=== PATIENT | male | born 1975 | race Caucasian/White ===

== ENCOUNTER 2025-05-06 10:19 | Outpatient (AMB) | payer OTHER, SELFPAY ==
--- NOTE | 2025-05-06 10:23 | A.OFFPC_ITS ---
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: No Accompanied by: Self / Same As Patient Allergies Penicillins (PCN) Allergy (Unknown, Verified 05/06/25 10:40) Unknown Medication List - Last Reconciled 05/06/25 by MARY JANE Garrido No Known Home Meds Tobacco use date assessed: 05/06/25 Dental Screening Dental Screen Date: 05/06/25 Did you have a dental visit in the last 12 months?: Yes Did you have a dental problem in the last 6 months where you did not have access to dental care?: No HPI HPI Comments History of Present Illness Details Previous PCP: He cannot remember the name Last visit: Three years ago at least Last PE: Several years ago 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 The patient reports a history of abnormal gait for approximately the last 10 years, which causes difficulty with walking for long durations. The patient experiences pain in both knees and hands, with the left foot reportedly being worse than the right. After walking for a period, the patient notes the onset of hip pain and an audible popping sound. The patient previously underwent physical therapy, which provided some benefit, and had imaging performed about two years ago. The patient reports being overweight and requests assistance with weight loss. Past medical history is notable for GERD and good baseline blood pressure, kidney function, and heart health. The patient denies a history of diabetes. The patient has a significant family history of cancer, noting their father, father's brother, and father's sisters have all had cancer. The patient's father had colon cancer that required chemotherapy. There is concern for a possible environmental link, as the [place] area. Health Maintenance - The patient's last physical exam was a bout 7 years ago. - Significant family history of cancer w as discussed, including colon cancer in the patient's father and other cancers among paternal relatives. - A discussion was held regarding potent ial environmental cancer risk factors related to growing [place] in an industrial town. - Screening labs, including a fasting ch olesterol panel, will be ordered as the patient has not had a physical in a while. 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 - The patient grew up in [place], [place], which was described as an industrial town with a high incidence of cancer. - The patient reports being overweight a nd desires assistance with weight management. - The patient reports an abnormal gait a nd cannot walk for very long, which impacts functional status. Results - Prior Imaging: The patient reports hav ing had imaging of the joints approximately two years ago. [facility] Medical History Knee pain, right Knee pain, left Gout Family History (Updated 05/06/25 @ 12:47 by MARY JANE Garrido) Mother No problems noted. Father No problems noted. Other Cancer of unknown origin Colon cancer Skin cancer Social History Housing: House Patient Tobacco Use Status: Current everyday Tobacco user (smoke cigar) e-Cigarette/Vaping Use: Currently Using (cigar) service: No Current occupational status: employed Cognitive needs: No Hearing needs: No Vision needs: Yes (rx glasses) Questionnaire PHQ-9 Over the last 2 weeks, how often have you been bothered by any of the following problems? 1. Little interest or pleasure in doing things: not at all 2. Feeling down, depressed, or hopeless: not at all 3. Trouble falling or staying asleep, or sleeping too much: more than half the days 4. Feeling tired or having little energy: several days 5. Poor appetite or overeating: more than half the days 6. Feeling bad about yourself - or that you are a failure or have let yourself or your family down: not at all 7. Trouble concentrating on things, such as reading the newspaper or watching television: not at all 8. Moving or speaking so slowly that other people could have noticed. Or the opposite - being so fidgety or restless that you have been moving around a lot more than usual: not at all 9. Thoughts that you would be better off or of hurting yourself in some way: not at all Total score: 5 Source: Developed by Drs. Vladislav Nelson, Carito Hunter, Domo Tobin and colleagues, with an educational daniel from [employer]. Thrive Questionnaire Date Thrive assessed: 05/06/25 I am a: Patient What is your living situation today?: I have a steady place to live Within the past 12 months, did the food you bought not last and you didn't have the money to get more?: Never true Within the past 12 months, did you worry whether your food would run out before you got money to buy more?: Never true Do you have trouble paying for medicines?: No Do you have trouble getting transportation to medical appointments?: No Do you have trouble paying your heating and electricity bill?: No Do you have trouble taking care of your child, family member or friend?: No Do you have trouble with day-to-day activities such as bathing, preparing meals, shopping, managing finances, etc.?: No Are you currently unemployed and looking for a job?: No Are you interested in more education?: No Please select the resources that you would like help with: None Currently or been in a relationship where the following occur: No concerns reported THRIVE Score: 0 AUDIT C Alcohol Use Questionnaire (AUDIT-C) 1. How often do you have a drink containing alcohol?: 2-3 times a week 2. How many drinks containing alcohol do you have on a typical day when you are drinking?: 3 or 4 3. How often do you have six or more drinks on one occasion?: Less than monthly Total Score: 5 MICHA-7 AMB Questionnaire MICHA-7 Date MICHA - 7 assessed: 05/06/25 Feeling nervous, anxious, or on edge: 0 = Not at all Not being able to stop or control worryin = Not at all Worrying too much about different things: 0 = Not at all Trouble relaxin = Not at all Being so restless that it is hard to sit still: 0 = Not at all Becoming easily annoyed or irritable: 0 = Not at all Feeling afraid as if something awful might happen: 0 = Not at all Total MICHA-7 score (0-4 normal; 5-9 mild; 10-14 moderate; 15-21 severe): 0 Source: Developed by Drs. Vladislav Nelson, Carito Hunter, Domo Tobin and colleagues, with an educational daniel from [employer]. Review of Systems Narrative Review of Systems - General: Reports being overweight and experiencing fatigue with exertion. - HEENT: Reports a sensation of blocked ears. - Gastrointestinal: Reports a history of GERD. - Musculoskeletal: Reports pain in both knees and hands. - Reports hip pain and an audible popping sound after walking. - Reports having an abnormal gait. Const Denies headache(s) Eyes Denies loss of vision ENT Denies vertigo, Denies dizziness, Denies headache(s) and Denies sore throat Card Denies chest pain, Denies leg edema and Denies lightheadedness Resp Denies cough, Denies hemoptysis and Denies wheezing GI Denies abdominal pain, Denies melena, Denies constipation, Denies diarrhea and Denies vomiting Denies dysuria, Denies urinary frequency and Denies urinary urgency Musc Reports arthralgias (Bilateral knees), Denies joint swelling, Denies numbness and Denies tingling Neuro Denies Abnormal speech present, Denies behavioral changes, Denies vertigo, Michael es dizziness, Denies headache(s), Denies loss of vision, Denies memory loss, Denies numbness and Denies tingling Psych Denies anxiety, Denies behavioral changes, Denies depression, Denies memory loss and Denies panic attacks Pete/Lymph Denies easy bleeding and Denies easy bruising Aller/Immun Denies wheezing Physical exam (Primary Care) Vital Signs: Last Vital Signs Temp 97.8 F 05/06/25 10:28 Pulse 63 05/06/25 10:28 BP 128/86 05/06/25 10:28 Pulse Ox 96 05/06/25 10:28 Oxygen Delivery Method Room Air 05/06/25 10:28 BMI result Body Mass Index 47.1 Tobacco/Smoking Status: Tobacco use Status Tobacco use date assessed 05/06/25 05/06/25 10:25 Patient Tobacco Use Status Current everyday Tobacco ( 05/06/25 10:35 smoke cigar) e-Cigarette/Vaping Use Currently Using (cigar) 05/06/25 10:35 PHQ-9: PHQ-9 Score PHQ-9: Total score 5 05/06/25 10:25 Thrive Assessment: Date of Thrive Assessment Date Thrive assessed 05/06/25 05/06/25 10:25 Currently or been in a relationship where the following occur: No concerns reported Narrative Physical Exam - HEENT: Otoscopic examination reveals bilateral ear canals are occluded by cerumen, preventing visualization of the tympanic membranes. - Musculoskeletal: General observation of gait performed. - Joint crepitus is present with movement. - Cardiovascular: Dorsalis pedis pulses were assessed. Const General: healthy appearing, no acute distress, alert and awake Nutritional Appearance: well nourished Orientation/consciousness: oriented to person, oriented to place and oriented to time HENMT Ears: TM's normal bilaterally General nose exam: Normal nasal mucous membranes and turbinates present Eyes Conjunctivae: conjunctivae normal Sclerae: sclerae normal Pupils: Equal, round and reactive pupils present Neck Neck: Yes no lymphadenopathy and Yes no JVD Thyroid: Thyroid normal Carotids: no bruits Resp Effort & Inspection: normal respiratory effort and not tachypneic Auscultation: no crackles, no rales, no rhonchi and no wheezes Cardio Rate: regular rate Rhythm: regular rhythm Heart sounds: no murmurs and normal S1 and S2 GI Palpation (GI): Soft to palpation, nontender, no hepatomegaly and no splenomegaly Auscultation: normal bowel sounds Skin General skin exam: no rashes or lesions noted and dry skin Neuro General: oriented to person, oriented to place and oriented to time Cranial nerves: Yes Equal, round and reactive pupils present Speech: No Abnormal speech present Gait exam (Neuro): Normal gait present Motor exam (neuro): no tremor noted Extrem Right upper extremity: full ROM Left upper extremity: full ROM Right lower extremity: full ROM and knee Details: swelling and crepitus Location: at the kneww; no tenderness; no edema Left lower extremity: full ROM and knee Details: swelling; no tenderness and no crepitus; no edema Psych Mental Status: mental status grossly normal Speech and movement: Normal speech and movement present Affect: normal affect Attitude: cooperative Thought process: Normal thought process present Coding Level of Care Code New Pt Level 4 (12455) Diagnoses Chronic gout without tophus, unspecified cause, unspecified site M1A.9XX0 Gout site: unspecified site Gout etiology: unspecified cause Chronicity: chronic Presence of tophus: without tophus Chronic pain of left knee M25.562; G89.29 Chronicity: chronic Chronic pain of right knee M25.561; G89.29 Chronicity: chronic Time Spent (min) 38 Assessment & Plan Assessment & Plan (1) Gout: Code(s): M10.9 - Gout, unspecified Category: Medical Qualifiers: Gout site: unspecified site Gout etiology: unspecified cause Chronicity: chronic Presence of tophus: without tophus Qualified Code(s): M1A.9XX0 - Chronic gout, unspecified, without tophus (tophi) (2) Knee pain, left: Code(s): M25.562 - Pain in left knee Category: Medical Qualifiers: Chronicity: chronic Qualified Code(s): M25.562 - Pain in left knee; G8 9.29 - Other chronic pain (3) Knee pain, right: Code(s): M25.561 - Pain in right knee Category: Medical Qualifiers: Chronicity: chronic Qualified Code(s): M25.561 - Pain in right knee; G89.29 - Other chronic pain Plan Plan Patient was informed and verbally consented to the use of an ambient scribe for clinic note documentation during this visit. 1. Difficulty In Walking, Not Elsewhere Classified The patient presents with a chronic history of abnormal gait and associated pain in the hips and knees, which limits the ability to walk for extended periods. To further evaluate the etiology, new X-rays of the affected joints will be ordered to assess the current condition, as prior imaging is two years old. A follow-up visit is scheduled in seven weeks to review the imaging results and formulate a comprehensive management plan to improve ambulation. 2. Morbid obesity The patient was encouraged to decrease foods that high in cholesterol. Management will include obtaining screening lab work, including a fasting cholesterol panel, to assess for metabolic abnormalities. Addressing the patient's gait and pain issues is a primary step toward enabling increased physical activity for weight management. 3. Encounter For General Adult Medical Examination As the patient has not had a physical examination in several years, comprehensive screening labs will be conducted. This will include a fasting lipid panel to check cholesterol levels. A follow-up visit will occur in seven weeks to review all results and complete the physical. Discussion Notes I discussed with the patient the plan to investigate the chronic difficulty with ambulation and associated pain. I explained that we will begin by obtaining new X-rays of the joints and comprehensive blood work, including a fasting lipid panel, as it has been a significant time since the patient's last physical. I recommended scheduling a follow-up appointment in approximately seven weeks to review all results and then develop a plan to address mobility and weight concerns. The patient was agreeable to this plan. Patient Instructions - Please go to the lab to have your blood drawn. - You must not eat or drink anything (except water) for 8 to 12 hours before the blood test for your cholesterol. - Please get X-rays of your joints as soon as you can. - Please schedule a follow-up appointment to see me in about 7 weeks to review all of your results. - At your next visit, we will create a plan to help you walk better and help with weight management. Orders: Orders Comprehensive [place]. Panel Fast Today Z00.00 - Encounter for general adult medical examination without abnormal findings Lipid Panel Today Z00.00 - Encounter for general adult medical examination without abnormal findings UA CC w/rflx Micro + Cult Today Z00.00 - Encounter for general adult medical examination without abnormal findings Vitamin D 25-OH Total Today Z00.00 - Encounter for general adult medical examination without abnormal findings XR knee LT 3V Today M25.562 - Pain in left knee XR knee RT 3V Today M25.561 - Pain in right knee Complete Blood Count Auto Diff Today Z00.00 - Encounter for general adult medical examination without abnormal findings TSH reflex Free T4 Today Z00.00 - Encounter for general adult medical examination without abnormal findings PSA,Total (Free>4and<10) Today Z00.00 - Encounter for general adult medical examination without abnormal findings Hemoglobin A1c Today Z00.00 - Encounter for general adult medical examination without abnormal findings Uric Acid Today M10.9 - Gout, unspecified
[2025-05-06 10:28] VITALS: BP 128/86; PULSE 63; TEMP 36.6; O2SAT 96; BMI 47.1
== END 2025-05-06 11:09 | disposition home or self-care (01) ==
LOC: HO.HMCH 10:19
DX: M1A.9XX0 Chronic gout, unspecified, without tophus (tophi) (principal); M25.562 Pain in left knee; G89.29 Other chronic pain; M25.561 Pain in right knee

== ENCOUNTER 2025-05-23 07:32 | Outpatient (REF) | payer OTHER, SELFPAY ==
--- NOTE | ~2025-05-23 | XR_ITS ---
EXAMINATION: XR KNEE, RIGHT CLINICAL INFORMATION: M25.561 - Pain in right knee COMPARISON: None available. TECHNIQUE: AP oblique and lateral views of the right knee. FINDINGS: Joint space narrowing involving mostly the lateral compartment. Marginal osteophyte formation femoral condyles and tibial plateau as well as the posterior patella. No acute fracture or dislocation. No soft tissue constipation. Vascular calcifications. No gross suprapatellar bursa joint effusion. XR/XR knee RT 3V IMPRESSION: Tricompartmental osteoarthrosis/osteoarthritis involving mostly the lateral compartment, moderate to severe. EXAMINATION: XR KNEE, LEFT CLINICAL INFORMATION: M25.562 - Pain in left knee COMPARISON: None available. TECHNIQUE: AP oblique and lateral views of the left knee. FINDINGS: Joint space narrowing involving mostly the medial compartment with sclerosis along the articular surface. Marginal osteophyte formation and femoral condyles and tibial plateau pronounced in the medial compartment. Posterior osteophyte formation in the patella. Unable to evaluate the suprapatellar bursa, left knee.. No gross joint effusion. Soft tissue calcifications in the popliteal region. No acute fracture or dislocation. IMPRESSION: Tricompartmental osteoarthrosis/osteoarthritis involving mostly the medial compartment, moderate to severe. Electronically signed by: Manuel Nguyen MD 05/23/2025 02:16 PM [facility]
--- NOTE | ~2025-05-23 | XR_ITS ---
EXAMINATION: XR KNEE, RIGHT CLINICAL INFORMATION: M25.561 - Pain in right knee COMPARISON: None available. TECHNIQUE: AP oblique and lateral views of the right knee. FINDINGS: Joint space narrowing involving mostly the lateral compartment. Marginal osteophyte formation femoral condyles and tibial plateau as well as the posterior patella. No acute fracture or dislocation. No soft tissue constipation. Vascular calcifications. No gross suprapatellar bursa joint effusion. XR/XR knee LT 3V IMPRESSION: Tricompartmental osteoarthrosis/osteoarthritis involving mostly the lateral compartment, moderate to severe. EXAMINATION: XR KNEE, LEFT CLINICAL INFORMATION: M25.562 - Pain in left knee COMPARISON: None available. TECHNIQUE: AP oblique and lateral views of the left knee. FINDINGS: Joint space narrowing involving mostly the medial compartment with sclerosis along the articular surface. Marginal osteophyte formation and femoral condyles and tibial plateau pronounced in the medial compartment. Posterior osteophyte formation in the patella. Unable to evaluate the suprapatellar bursa, left knee.. No gross joint effusion. Soft tissue calcifications in the popliteal region. No acute fracture or dislocation. IMPRESSION: Tricompartmental osteoarthrosis/osteoarthritis involving mostly the medial compartment, moderate to severe. Electronically signed by: Manuel Nguyen MD 05/23/2025 02:16 PM [facility]
[2025-05-23 10:12] LABS: MANUAL DIFF FLAG NO
[2025-05-23 10:22] LABS: Hematocrit 47.7 % (42.0-52.0); Hemoglobin 15.7 g/dl (14.0-18.0); Imm Gran Abs Auto 0.04 X10*3/uL (0.00-0.03); Imm Gran Pct Auto 0.5 % (0.0-0.4); Lymphocytes Absolute Auto 2.1 X10*3/uL (1.2-4.9); Mean Corpuscular HGB Conc 32.9 g/dl (31.0-36.0); Mean Corpuscular Hemoglobin 30.6 pg (27.0-33.0); Mean Corpuscular Volume 93.0 fL (80.0-98.0); NRBC Abs Auto 0.000 X10*3/uL (0.0-0.012); NRBC Pct Auto 0.0 /100WBC (0.0-0.2); Platelet Count 345 X10*3/uL (160-400); Red Blood Count 5.13 X10*6/uL (4.60-5.80); White Blood Count 7.4 X10*3/uL (4.8-10.8)
[2025-05-23 10:37] LABS: Alanine Aminotransferase 43 U/L (0-40); Albumin Level 4.4 g/dL (3.5-5.0); Alkaline Phosphatase 75 U/L (39-117); Anion Gap 13 (12-20); Aspartate Amino Transferase 33 U/L (5-37); Blood Urea Nitrogen 15 mg/dL (9-16); Calcium 8.9 mg/dL (8.4-10.2); Carbon Dioxide 27 mmol/L (22-29); Chloride 105 mmol/L (96-108); Cholesterol 220 mg/dL (<200); Estimated Glomerular Filt Rate > 60; HDL Cholesterol 61 mg/dL (>40); Potassium 4.3 mmol/L (3.3-5.1); Sodium 141 mmol/L (135-145); Total Protein 7.0 g/dL (6.5-8.0); Triglycerides 65 mg/dL (<150); Uric Acid 8.6 mg/dL (3.4-7.0)
[2025-05-23 11:05] LABS: PSA,Total (Free>4and<10) 0.40 ng/mL (0.00-4.00)
[2025-05-23 16:50] LABS: Appearance Urine Clear; Glucose Urine UA Negative (Negative); PH 5.5 (5.0-9.0); Specific Gravity - Urine 1.010 (1.005-1.025)
== END 2025-05-23 07:33 | disposition home or self-care (01) ==
LOC: HO.HMGCX 07:32
DX: Z00.00 Encounter for general adult medical examination without abnormal findings (principal); M25.561 Pain in right knee; M25.562 Pain in left knee; M10.9 Gout, unspecified; Z12.5 Encounter for screening for malignant neoplasm of prostate; Z13.29 Encounter for screening for other suspected endocrine disorder; Z13.1 Encounter for screening for diabetes mellitus; Z13.21 Encounter for screening for nutritional disorder; Z13.6 Encounter for screening for cardiovascular disorders
CPT/HCPCS: 36415; 73562; 80053; 80061; 81003; 82306; 83036; 84153; 84443; 84550; 85025

== ENCOUNTER → 2025-05-23 13:52 | Outpatient (BNV) | payer OTHER, SELFPAY | PROVIDERS: Visit Provider Radiology Diagnostic Radiology | DX: M17.0 Bilateral primary osteoarthritis of knee (principal) | CPT/HCPCS: 73562 ==